=== PATIENT | male | born 1955 | race African-American/Black ===

== ENCOUNTER 2022-11-20 14:52 | Emergency (ER) | payer OTHER ==
[~2022-11-20] VITALS: Ht 177.8 cm; Wt 74.6 kg
[2022-11-20] MEDS ORDERED: ONDANSETRON HCL 4 MG/2 ML VIAL IV ONE (15:30)
[2022-11-20] MEDS ORDERED: PANTOPRAZOLE 40 MG/10 ML VIAL INJ IV ONE (15:30)
[2022-11-20] MEDS ORDERED: ACETAMINOPHEN 325 MG TAB PO ONE ×2 (15:45→20:30)
[2022-11-20 16:25] LABS: Basophils # (auto) 0 10 ^3/uL (0-0.2); Basophils % (auto) 0.4 % (0.0-2.0); Eosinophils # (auto) 0 10 ^3/uL (0-0.8); Eosinophils % (auto) 0.5 % (0.0-7.0); Hematocrit 45.8 % (41.0-53.0); Lymphocytes # (auto) 0.3 10 ^3/uL (0.4-5.4); Lymphocytes % (auto) 12.8 % (10.0-50.0); Mean Corpuscular Hemoglobin 29.7 pg (28.0-32.0); Mean Corpuscular Hgb Conc. 32.7 g/dL (32.0-36.0); Mean Corpuscular Volume 90.6 fL (80.0-100.0); Monocytes # (auto) 0 10 ^3/uL (0-1.3); Monocytes % (auto) 1.5 % (0.0-12.0); Neutrophils # (auto) 2.1 10 ^3/uL (1.6-8.6); Neutrophils % (auto) 84.8 % (37.0-80.0); Nucleated Red Blood Cells % 0.1 %; Red Blood Cells 5.05 10^6/uL (4.5-5.90); Red Cell Distribution Width 15.8 % (11.8-14.3); White Blood Cell 2.5 10^3/uL (4.4-10.8)
[2022-11-20 16:31] LABS: Albumin 4.4 g/dL (3.4-5.0); Calcium 9.6 mg/dL (8.5-10.1); Potassium 4.3 mmol/L (3.5-5.1)
[2022-11-20 16:41] LABS: BUN/Creatinine Ratio 16.4 (10.0-20.0); Bilirubin, Total 1.2 mg/dL (0.2-1.0); Total Protein 7.5 g/dL (6.4-8.2)
[2022-11-20 17:05] LABS: INR 1.04 (0.9-1.15); Partial Thromboplastin Time 25.4 SEC (24.5-34.5)
[2022-11-20 17:42] VITALS: PULSE 120; RESP 22; O2SAT 93
[2022-11-20 19:30] VITALS: PULSE 110; RESP 20; O2SAT 92
[2022-11-20] MEDS ORDERED: cefTRIAXone 1GM/50ML D5W 50 ML IV ONE (20:30)
[2022-11-20 23:39] VITALS: BP 117/75; PULSE 108; RESP 20; TEMP 98.7; O2SAT 96
== END 2022-11-21 01:18 | disposition hospice, inpatient (51) ==
LOC: ER 14:52
DX: R11.2 Nausea with vomiting, unspecified (principal); R50.9 Fever, unspecified; R10.13 Epigastric pain; R19.7 Diarrhea, unspecified; I10 Essential (primary) hypertension; E78.5 Hyperlipidemia, unspecified; I25.2 Old myocardial infarction; Z88.8 Allergy status to other drugs, medicaments and biological substances; Z48.21 Encounter for aftercare following heart transplant; Z20.822 Contact with and (suspected) exposure to COVID-19
CPT/HCPCS: 36415; 71045; 74176; 76705; 80053; 83605; 83690; 83735; 84484; 85025; 85610; 85730; 87040; 87426; 93005; 96365; 96375; 99285; C9113; J0696; J2405